=== PATIENT | female | born 1960 | race Caucasian/White ===

== ENCOUNTER 2025-04-15 14:43 | Inpatient (IN) | payer MEDICAID ==
[~2025-04-15] VITALS: Ht 165.1 cm; Wt 63.3 kg
[2025-04-15] MEDS: SODIUM CHLORIDE 0.9% 1,000 ML IV ONE (15:11)
[2025-04-15 15:24] LABS: BASOPHILS % 1.0 % (0.0-2.0); EOSINOPHILS % 1.5 % (0.0-5.0); HEMATOCRIT. 41.0 % (36.0-48.0); HEMOGLOBIN. 13.2 g/dL (12.0-16.0); LYMPHOCYTES % 27.0 % (20.0-50.0); MEAN PLATELET VOLUME 7.4 fl (7.4-10.4); MONOCYTES % 7.4 % (2.0-8.0); NEUTROPHILS % 63.1 % (40.0-76.0); PLATELET 317 x1000/uL (130-400); RED BLOOD CELL COUNT 4.86 mill/uL (4.2-5.4); RED CELL DISTRIBUTION WIDTH 14.6 % (11.6-14.6)
[2025-04-15 15:36] LABS: INR 1.0
[2025-04-15 15:37] LABS: CREATININE 0.7 mg/dL (0.6-1.0); UREA NITROGEN BLOOD 9 mg/dL (9-23)
[2025-04-15 15:38] LABS: ASPARTATE AMINOTRANSFERASE 16 IU/L (<34); TROPONIN I HIGH SENSITIVITY 12 ng/L (3.0-34)
[2025-04-15 15:39] LABS: BILIRUBIN DIRECT 0.2 mg/dL (<=3.0); BILIRUBIN TOTAL 0.6 mg/dL (0.1-1.0); PROTEIN TOTAL 7.6 g/dL (6.0-8.3)
[2025-04-15 16:47] LABS: TROPONIN I HIGH SENSITIVITY 41 ng/L (3.0-34)
[2025-04-15] MEDS: ASPIRIN 81MG TABLET PO ONE (18:17)
[2025-04-15 19:22] LABS: TROPONIN I HIGH SENSITIVITY 77 ng/L (3.0-34)
[2025-04-15] MEDS ORDERED: GUAIFENESIN 200MG/10ML SUGAR FREE UDC PO PRN (22:00)
[2025-04-15] MEDS ORDERED: DOCUSATE SODIUM 100MG CAPSULE PO PRN (22:00)
[2025-04-15] MEDS ORDERED: ONDANSETRON HCL 4MG/2ML INJ IV PRN (22:00)
[2025-04-15] MEDS ORDERED: ACETAMINOPHEN 325MG TABLET PO PRN ×2 (22:00)
[2025-04-15] MEDS ORDERED: CLONIDINE 0.1MG TABLET PO PRN (22:00)
[2025-04-15] MEDS ORDERED: MAGNESIUM/ALUMINUM HYDROXIDE/SIMETHICONE 30ML UDC PO PRN (22:00)
[2025-04-15] MEDS ORDERED: IPRATROPIUM/ALBUTEROL 0.5-3(2.5)MG/3ML NEB HHN PRN (22:00)
[2025-04-15 22:33] VITALS: BP 128/81; PULSE 71; RESP 16; TEMP 36.9184
[2025-04-15] MEDS ORDERED: PNEUMOCOCCAL 20-VAL CONJ-DIP CRM 0.5ML IM ONE (22:45)
[2025-04-15] MEDS: PANTOPRAZOLE SODIUM 40 MG/VIAL IV SCH (23:18)
[2025-04-16] VITALS (8 sets, daily range): BP systolic 102–129; BP diastolic 63–81; PULSE 67–74; RESP 16–18; TEMP 36.2–36.9; O2SAT 98–100
[2025-04-16 01:15] LABS: PHOSPHORUS 2.3 mg/dL (2.5-4.9)
[2025-04-16 01:17] LABS: CREATINE KINASE MB FRACTION 1.2 ng/mL (0.5-3.6)
[2025-04-16 01:21] LABS: T4 FREE 1.21 ng/dL (0.89-1.76)
[2025-04-16 01:48] LABS: TROPONIN I HIGH SENSITIVITY 68 ng/L (3.0-34)
[2025-04-16 01:51] LABS: HEPATITIS C AB NON REACTIVE (Neg) (Negative)
[2025-04-16] MEDS: SODIUM PHOSPHATE 10 MMOL in DEXT 5% WATER 246.6667 ML IV NR (03:44)
[2025-04-16 05:17] LABS: FOLIC ACID (FOLATE) SERUM 13.8 ng/mL (>5.38)
[2025-04-16 06:55] LABS: BASOPHILS % 1.1 % (0.0-2.0); EOSINOPHILS % 2.2 % (0.0-5.0); HEMATOCRIT. 37.5 % (36.0-48.0); HEMOGLOBIN. 12.3 g/dL (12.0-16.0); LYMPHOCYTES % 32.4 % (20.0-50.0); MEAN PLATELET VOLUME 7.3 fl (7.4-10.4); MONOCYTES % 8.2 % (2.0-8.0); NEUTROPHILS % 56.1 % (40.0-76.0); PLATELET 296 x1000/uL (130-400); RED BLOOD CELL COUNT 4.47 mill/uL (4.2-5.4); RED CELL DISTRIBUTION WIDTH 14.5 % (11.6-14.6)
[2025-04-16 07:03] LABS: CREATININE 0.7 mg/dL (0.6-1.0)
[2025-04-16 07:04] LABS: LDL CHOLESTEROL 163 mg/dL (5-100); TRIGLYCERIDE 155 mg/dL (0-150); UREA NITROGEN BLOOD 11 mg/dL (9-23)
[2025-04-16 07:05] LABS: ASPARTATE AMINOTRANSFERASE 13 IU/L (<34); BILIRUBIN DIRECT 0.1 mg/dL (<=3.0); CREATINE KINASE MB FRACTION 1.1 ng/mL (0.5-3.6); PROTEIN TOTAL 6.7 g/dL (6.0-8.3); TROPONIN I HIGH SENSITIVITY 28.0 ng/L (3.0-34)
[2025-04-16 07:06] LABS: BILIRUBIN TOTAL 0.5 mg/dL (0.1-1.0); PHOSPHORUS 4.0 mg/dL (2.5-4.9)
[2025-04-16] MEDS: ENOXAPARIN 40MG/0.4ML SYR SUBCUT SCH (08:38)
[2025-04-16] MEDS: ASPIRIN 81MG TABLET PO SCH (08:38)
[2025-04-16] MEDS: AMLODIPINE 5MG TABLET PO SCH (08:39)
[2025-04-16 17:39] LABS: GLUCOSE URINE NEGATIVE (NEGATIVE); KETONES URINE NEGATIVE (NEGATIVE); LEUKOCYTE ESTERASE URINE 2+ (NEGATIVE); NITRITE URINE NEGATIVE (NEGATIVE); OCCULT BLOOD URINE NEGATIVE (NEGATIVE); PH URINE 6.5 (4.5-8.0); PROTEIN URINE NEGATIVE (NEGATIVE); SPECIFIC GRAVITY URINE 1.011 (1.005-1.030); UROBILINOGEN URINE 0.2 E.U./dL (0.2-1.0)
[2025-04-16 17:52] LABS: *AMPHETAMINES SCREEN URINE NEGATIVE (NEGATIVE); *BARBITURATES SCREEN URINE NEGATIVE (NEGATIVE); *BENZODIAZEPINES SCREEN URINE NEGATIVE (NEGATIVE); *COCAINE SCREEN URINE NEGATIVE (NEGATIVE); CANNABINOID URINE SCREEN NEGATIVE (NEGATIVE); METHADONE URINE SCREEN NEGATIVE (NEGATIVE); OPIATES URINE SCREEN NEGATIVE (NEGATIVE); PHENCYCLIDINE URINE SCREEN NEGATIVE (NEGATIVE)
[2025-04-16 17:53] LABS: ECSTASY MDMA SCREEN URINE NEGATIVE (NEGATIVE)
[2025-04-16 18:46] LABS: CLARITY URINE SL HAZY (CLEAR); COLOR URINE STRAW (YELLOW)
[2025-04-16 18:47] LABS: BACTERIA URINE TRACE; RBC URINE NONE SEEN /hpf (0-2); SQUAMOUS EPITHELIAL CELL URINE 1+ /lpf (RARE/1+)
[2025-04-16] MEDS: ATORVASTATIN CALCIUM 40MG TABLET PO SCH (20:20)
[2025-04-16] MEDS: METOPROLOL TARTRATE 25MG TABLET PO SCH (20:20)
== END 2025-04-16 21:15 | disposition short-term general hospital (02) | DRG 201 ==
LOC: ER 14:43 → ENRESERV 20:40 → 6WST 21:21
PROVIDERS: ADMIT Hospitalist; ATTEND Hospitalist
DX: I47.10 Supraventricular tachycardia, unspecified (principal); I21.A1 Myocardial infarction type 2; E83.39 Other disorders of phosphorus metabolism; I10 Essential (primary) hypertension; E03.8 Other specified hypothyroidism; R73.03 Prediabetes; Z79.82 Long term (current) use of aspirin; Z79.899 Other long term (current) drug therapy; Z82.49 Family history of ischemic heart disease and other diseases of the circulatory system
CPT/HCPCS: 36415; 71045; 80048; 80061; 80076; 80305; 81003; 82550; 82553; 82728; 82746; 82962; 83036; 83540; 83550; 83735; 83880; 84100; 84439; 84443; 84484; 85025; 85379; 86705; 87340; 93005; 93306; 93970; 96360; 99291; J1650; J2470; J3490; J7060